=== PATIENT | female | born 1980 | race African-American/Black ===

== ENCOUNTER 2019-11-01 13:35 | Emergency (ER) | payer OTHER ==
--- NOTE | 2019-11-01 13:45 | PDOC ---
Rapid Medical Evaluation Time Seen by Provider: 11/01/19 13:41 Medical Evaluation: Allergies Allergy/AdvReac Type Severity Reaction Status Date / Time metronidazole [From Flagyl] Allergy Mild Rash Verified 09/13/15 12:05 11/01/19 13:41 39-year-old female with a history of HTN (stopped meds due to dizziness) presenting with 3 days of lower abdominal pain. LMP 1/3 but "not a full period. " No dysuria, some frequency. Alert, oriented, no distress. Abdomen soft, protuberant. +LLQ/left pelvic tenderness. I have ordered the following: UA/culture, urine hcg Patient to proceed to the ED for further evaluation.
[2019-11-01 13:46] VITALS: BP 140/95; PULSE 78; TEMP 98.6; BMI 29.8
[2019-11-01 14:10] LABS: URINE APPEARANCE CLEAR; URINE BILIRUBIN NEGATIVE (NEGATIVE); URINE COLOR YELLOW; URINE GLUCOSE (UA) NEGATIVE (NEGATIVE); URINE KETONE TRACE (NEGATIVE); URINE LEUK ESTERASE NEGATIVE (NEGATIVE); URINE NITRITE NEGATIVE (NEGATIVE); URINE PROTEIN NEGATIVE (NEGATIVE)
--- NOTE | 2019-11-01 15:09 | PDOC ---
History of Present Illness - General Chief Complaint: Pain, Acute Stated Complaint: ABD PAIN Time Seen by Provider: 11/01/19 13:41 History Source: Patient Exam Limitations: No Limitations - History of Present Illness Travel History: No Initial Comments: 11/01/19 15:01 39-year-old female presents to ED for evaluation of . Patient states has been having lower abdominal cramping and states her menses is currently 8 days late. Patient has no other complaints including vaginal discharge, urinary complaints, bowel complaints fever, chills or nausea. Timing/Duration: reports: intermittent, resolved prior to arrival Quality: reports: mild, cramping Abdominal Pain Onset Location: reports: suprapubic Pain Radiation: reports: no radiation Activities at Onset: reports: none Aggravating Factors: improves with: None Alleviating Factors: improves with: None Past History - Travel Traveled outside of the country in the last 30 days: No Close contact w/someone who was outside of country & ill: No - Past Medical History Allergies/Adverse Reactions: Allergies Allergy/AdvReac Type Severity Reaction Status Date / Time metronidazole [From Flagyl] Allergy Mild Rash Verified 09/13/15 12:05 Home Medications: Ambulatory Orders Ibuprofen/Pseudoephedrine HCl [Advil Cold & Sinus Caplet] 1 each PO QID PRN #20 tablet 09/13/15 COPD: No GI Disorders: No Hypercholesterolemia: No - Surgical History Abdominal Surgery: Yes GI Surgery: No - Immunization History Immunization Up to Date: No - Psycho Social/Smoking Cessation Hx Smoking History: Never smoked Have you smoked in the past 12 months: No Information on smoking cessation initiated: No Hx Alcohol Use: No Drug/Substance Use Hx: No Substance Use Type: None Patient Lives Alone: No Lives with/in: spouse/SO Review of Systems - Review of Systems Able to Perform ROS?: No Is the patient limited Macedonian proficient: No Constitutional: No: Symptoms Reported HEENTM: No: Symptoms Reported Respiratory: No: Symptoms reported Cardiac (ROS): No: Symptoms Reported ABD/GI: Yes: Abdominal cramping : No: Symptoms Reported Musculoskeletal: No: Symptoms Reported Integumentary: No: Symptoms Reported Neurological: No: Symptoms reported *Physical Exam - Vital Signs Last Vital Signs Temp Pulse Resp BP Pulse Ox 98.6 F 78 18 140/95 98 11/01/19 13:42 11/01/19 13:42 11/01/19 13:42 11/01/19 13:42 11/01/19 13:42 - Physical Exam General Appearance: Yes: Nourished, Appropriately Dressed. No: Apparent Distress HEENT: negative: Pale Conjunctivae Neck: positive: Supple Respiratory/Chest: positive: Lungs Clear, Normal Breath Sounds. negative: Respiratory Distress, Accessory Muscle Use Cardiovascular: positive: Regular Rhythm, Regular Rate. negative: Murmur Gastrointestinal/Abdominal: positive: Normal Bowel Sounds, Soft. negative: Distended, Tenderness Musculoskeletal: positive: CVA Tenderness Extremity: positive: Normal Inspection Integumentary: positive: Normal Color, Warm, Moist Neurologic: positive: Motor Strength 5/5 (Ambulatory) ED Treatment Course - ADDITIONAL ORDERS Additional order review: Laboratory Results 11/01/19 11/01/19 13:53 13:53 Urine Color Yellow Urine Appearance Clear Urine pH 6.0 Ur Specific [place] 1.029 Urine Protein Negative Urine Glucose (UA) Negative Urine Ketones Trace H Urine Blood Negative Urine Nitrite Negative Urine Bilirubin Negative Urine Urobilinogen 1.0 Ur Leukocyte Esterase Negative Urine HCG, Qual Negative Medical Decision Making - Medical Decision Making 11/01/19 15:10 CC: Patient with lower abdominal cramping intermittently requesting a test. 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 Exam. Vital signs stable. No abdominal tenderness. Plan: Urine ordered from [facility] and collected and sent prior to my assessment 11/01/19 15:11 Laboratory Tests 11/01/19 11/01/19 13:53 13:53 Urine Ketones Trace H Urine Bilirubin Negative Ur Leukocyte Esterase Negative Urine HCG, Qual Negative Patient requesting to leave and requesting a Medicaid taxi 11/01/19 15:14 Medicaid taxi arranged for pickup shortly Discharge - Discharge Information Problems reviewed: Yes Clinical Impression/Diagnosis: Negative test Condition: Good Disposition: HOME - Follow up/Referral - Patient Discharge Instructions Additional Instructions: Your urine for was negative. - Post Discharge Activity
== END 2019-11-01 16:31 | disposition home or self-care (01) ==
LOC: JER 13:35
DX: Z32.02 Encounter for pregnancy test, result negative (principal); I10 Essential (primary) hypertension; Z88.1 Allergy status to other antibiotic agents
CPT/HCPCS: 81003; 84703; 87086; 99282-25

== ENCOUNTER 2020-10-29 11:24 | Emergency (ER) | payer OTHER ==
[2020-10-29 11:30] VITALS: BP 140/90; PULSE 75; TEMP 98.8; BMI 22.6
== END 2020-10-29 12:20 | disposition home or self-care (01) ==
LOC: JER 11:24
DX: H60.501 Unspecified acute noninfective otitis externa, right ear (principal); R09.81 Nasal congestion
CPT/HCPCS: 87070; 87880; 99283-25

== ENCOUNTER 2021-04-29 15:48 | Emergency (ER) | payer OTHER ==
[2021-04-29 15:55] VITALS: BP 134/91; PULSE 90; TEMP 98; BMI 34.5
[2021-04-29] MEDS ORDERED: ACETAMINOPHEN/CAFFEINE/BUTALBITAL 1 TAB PO ONE (17:07)
[2021-04-29] MEDS ORDERED: METOCLOPRAMIDE HCL 10 MG TABLET (FP) PO ONE ×2 (17:07→17:12)
[2021-04-29] MEDS ORDERED: ACETAMINOPHEN/CAFFEINE/BUTALBITAL 1 TAB ONE (17:12)
== END 2021-04-29 18:40 | disposition home or self-care (01) ==
LOC: JER 15:48
DX: G43.909 Migraine, unspecified, not intractable, without status migrainosus (principal)
CPT/HCPCS: 99283-25